=== PATIENT | male | born 1960 | race Caucasian/White ===

== ENCOUNTER → 2017-10-24 | Outpatient (CLI) | payer BC ==
[~2017-10-24] MED LIST: CALCTAB73 PO; MULT-599 PO; OMEG5CAP PO; VALA1TAB PO
[2017-10-24 12:20] LABS: HEMOGLOBIN A1C 6.8 % (4.5-5.6)
[2017-10-24 12:30] LABS: ALBUMIN 3.7 gm/dl (3.4-5.0); ALKALINE PHOSPHATASE 103 U/L (45-117); ALT/SGPT 43 U/L (12-78); AST/SGOT 21 U/L (15-37); BLOOD UREA NITROGEN 18 mg/dl (7-18); CARBON DIOXIDE 29 mmol/L (21-32); CHOLESTEROL 180 mg/dl (0-200); CREATININE 1.21 mg/dl (0.60-1.40); GLUCOSE 131 mg/dl (70-99); LDL CHOLESTEROL CALCULATED 78 mg/dl; POTASSIUM 4.2 mmol/L (3.5-5.1); SODIUM 139 mmol/L (136-145); TOTAL PROTEIN 7.6 gm/dl (6.4-8.2)
== END | disposition home or self-care (01) ==
LOC: C.LAB1850 10:38
PROVIDERS: ATTEND Internal Medicine
DX: R73.01 Impaired fasting glucose (principal); Z11.59 Encounter for screening for other viral diseases; Z13.220 Encounter for screening for lipoid disorders

== ENCOUNTER → 2017-10-25 | Outpatient (CLI) | payer BC | END | disposition home or self-care (01) | LOC: C.PATHSPEC 17:43 | PROVIDERS: ATTEND Physician Assistant | DX: L81.9 Disorder of pigmentation, unspecified (principal); B07.9 Viral wart, unspecified ==